=== PATIENT | female | born 1985 | race Asian ===

== ENCOUNTER 2020-01-05 10:05 | Emergency (ER) | payer BC ==
[~2020-01-05] VITALS: Ht 160 cm; Wt 59.0 kg
--- NOTE | 2020-01-05 10:08 | NUR ---
ED Nurse Note: Pt walked in from work c/o 09/05 left lower abdominal pain x 2 months, but pain worsened today. Facial grimacing noted. Last menstruation started 4 days ago. Respirations even and tachypneic on room air. Vitals stable as documented. Pt placed on monitor.
[2020-01-05 10:18] VITALS: BP 115/80
--- NOTE | 2020-01-05 10:21 | Emergency Room Report ---
History of Present Illness General Chief Complaint: Abdominal Pain Source: Patient Present Illness HPI Patient is a 34-year-old female who presents after increased left lower quadrant pain. Reports currently being on her menses. She states he taken control pills. Gradual onset of symptoms which had worsened over time. Prior history of benign pituitary tumor and denies taking any current medications for this.Reports having increased left lower abdominal pain. Pain is worse with movement. Denies heavy bleeding. Allergies: Coded Allergies: No Known Allergies (Unverified , 01/05/20) Patient History Past Medical History: see triage record Last Menstrual Period: CURRENTLY ON HER PERIOD Now: No Reviewed Nursing Documentation: PMH: Agreed; PSxH: Agreed Nursing Documentation-PMH Past Medical History: No History, Except For Review of Systems All Other Systems: negative except mentioned in HPI Physical Exam Vital Signs Date Time Temp Pulse Resp B/P (MAP) Pulse Ox O2 Delivery O2 Flow Rate FiO2 01/05/20 10:09 97.2 84 25 115/80 (92) 100 Room Air Sp02 EP Interpretation: reviewed, normal General Appearance: normal inspection, alert, mild distress Head: atraumatic ENT: normal ENT inspection, hearing grossly normal, normal voice Neck: normal inspection, full range of motion, supple, no bony tend Respiratory: normal inspection, lungs clear, normal breath sounds, no respiratory distress, no retraction, no wheezing Cardiovascular #1: regular rate, rhythm, no edema Gastrointestinal: normal inspection, normal bowel sounds, soft, no guarding, no hernia, tenderness - Lower quadrant Genitourinary: no CVA tenderness Musculoskeletal: normal inspection, back normal, normal range of motion Neurologic: alert, responsive, speech normal, normal inspection Psychiatric: normal inspection, judgement/insight normal, mood/affect normal Medical Decision Making Diagnostic Impression: Primary Impression: Ovarian cyst rupture ER Course Patient presented for lower abdominal pain. Differential diagnosis include was not limited to ruptured ovarian cyst, appendicitis, diverticulitis, bowel obstruction among others. Because of complexity of patient's case laboratory tests and imaging studies were ordered. Imaging study showed some free fluid in the pelvis. Laboratory testing did show some elevated white blood count. Venous duplex of the left lower extremities ordered due to patient's left-sided leg pain. There is no evident DVT seen. Patient given pain medications emergency department with improvement. She was advised to remain off work until improved. The patient is advised to follow up with [employer] in 1-2 days. Patient is advised to return if any worsening condition or if any changes in status that are concerning. This report is dictated with [employer] residential support specialist software which may occasionally lead to discrepancies related to use of this software. Labs Test 01/05/20 10:10 01/05/20 10:40 White Blood Count 18.8 K/UL (4.8-10.8) Red Blood Count 4.76 M/UL (4.20-5.40) Hemoglobin 14.9 G/DL (12.0-16.0) Hematocrit 43.3 % (37.0-47.0) Mean Corpuscular Volume 91 FL (80-99) Mean Corpuscular Hemoglobin 31.2 PG (27.0-31.0) Mean Corpuscular Hemoglobin Concent 34.4 G/DL (32.0-36.0) Red Cell Distribution Width 11.3 % (11.6-14.8) Platelet Count 339 K/UL (150-450) Mean Platelet Volume 5.8 FL (6.5-10.1) Neutrophils (%) (Auto) % (45.0-75.0) Lymphocytes (%) (Auto) % (20.0-45.0) Monocytes (%) (Auto) % (1.0-10.0) Eosinophils (%) (Auto) % (0.0-3.0) Basophils (%) (Auto) % (0.0-2.0) Differential Total Cells Counted 100 Neutrophils % (Manual) 83 % (45-75) Lymphocytes % (Manual) 12 % (20-45) Monocytes % (Manual) 5 % (1-10) Eosinophils % (Manual) 0 % (0-3) Basophils % (Manual) 0 % (0-2) Band Neutrophils 0 % (0-8) Platelet Estimate Adequate Platelet Morphology Normal Red Blood Cell Morphology Normal Prothrombin Time 10.0 SEC (9.30-11.50) Prothromb Time International Ratio 0.9 (0.9-1.1) Activated Partial Thromboplast Time 29 SEC (23-33) Sodium Level 141 MMOL/L (136-145) Potassium Level 3.7 MMOL/L (3.5-5.1) Chloride Level 104 MMOL/L (98-107) Carbon Dioxide Level 26 MMOL/L (21-32) Anion Gap 11 mmol/L (5-15) Blood Urea Nitrogen 18 mg/dL (7-18) Creatinine 0.7 MG/DL (0.55-1.30) Estimat Glomerular Filtration Rate > 60 mL/min (>60) Glucose Level 105 MG/DL (74-106) Calcium Level 9.5 MG/DL (8.5-10.1) Total Bilirubin 0.4 MG/DL (0.2-1.0) Aspartate Amino Transf (AST/SGOT) 15 U/L (15-37) Alanine Aminotransferase (ALT/SGPT) 15 U/L (12-78) Alkaline Phosphatase 61 U/L (46-116) Troponin I 0.000 ng/mL (0.000-0.056) Total Protein 8.3 G/DL (6.4-8.2) Albumin 3.8 G/DL (3.4-5.0) Globulin 4.5 g/dL Albumin/Globulin Ratio 0.8 (1.0-2.7) Lipase 133 U/L (73-393) Thyroid Stimulating Hormone (TSH) 0.849 uiU/mL (0.358-3.740) Urine Color Yellow Urine Appearance Very cloudy Urine pH 9 (4.5-8.0) Urine Specific [place] 1.015 (1.005-1.035) Urine Protein Negative (NEGATIVE) Urine Glucose (UA) Negative (NEGATIVE) Urine Ketones 2+ (NEGATIVE) Urine Blood 5+ (NEGATIVE) Urine Nitrite Negative (NEGATIVE) Urine Bilirubin Negative (NEGATIVE) Urine Urobilinogen Normal MG/DL (0.0-1.0) Urine Leukocyte Esterase 1+ (NEGATIVE) Urine RBC 15-20 /HPF (0 - 2) Urine WBC 0-2 /HPF (0 - 2) Urine Squamous Epithelial Cells Few /LPF (NONE/OCC) Urine Amorphous Sediment Many /LPF (NONE) Urine Bacteria Few /HPF (NONE) Urine HCG, Qualitative Negative (NEGATIVE) Last Vital Signs Date Time Temp Pulse Resp B/P (MAP) Pulse Ox O2 Delivery O2 Flow Rate FiO2 01/05/20 10:09 97.2 84 25 115/80 (92) 100 Room Air Status: improved Disposition: HOME, SELF-CARE Condition: Stable Scripts Hydrocodone Bit/Acetaminophen 5-325* (NORCO 5-325*) 1 Each Tablet 1 TAB ORAL Q6H PRN for For Pain, #8 TAB 0 Refills Prov: Markel Duong MD 01/05/20 Ibuprofen* (MOTRIN*) 600 Mg Tablet 600 MG ORAL Q8H PRN for For Pain, #30 TAB 0 Refills Prov: Markel Duong MD 01/05/20 Markel Duong MD Jan 05, 2020 10:21
[2020-01-05 10:28] LABS: HEMATOCRIT 43.3 % (37.0-47.0); HEMOGLOBIN 14.9 G/DL (12.0-16.0); MEAN CORPUSCULAR VOLUME 91 FL (80-99); PLATELET COUNT 339 K/UL (150-450); RED BLOOD COUNT 4.76 M/UL (4.20-5.40); RED CELL DISTRIBUTION WIDTH 11.3 % (11.6-14.8); WHITE BLOOD COUNT 18.8 K/UL (4.8-10.8)
[2020-01-05] MEDS ORDERED: Morphine Sulfate 4mg/ml Inj (IV USE ONLY) IVP ONE (10:30)
[2020-01-05 10:33] LABS: ANION GAP 11 mmol/L (5-15); BLOOD UREA NITROGEN 18 mg/dL (7-18); CALCIUM 9.5 MG/DL (8.5-10.1); CARBON DIOXIDE 26 MMOL/L (21-32); CHLORIDE 104 MMOL/L (98-107); CREATININE 0.7 MG/DL (0.55-1.30); POTASSIUM 3.7 MMOL/L (3.5-5.1); SODIUM 141 MMOL/L (136-145)
[2020-01-05 10:37] LABS: INR 0.9 (0.9-1.1)
[2020-01-05] MEDS ORDERED: MARLISSA1 EACH PO (10:45)
[2020-01-05 10:46] LABS: ALANINE AMINOTRANSFERASE 15 U/L (12-78); ALBUMIN 3.8 G/DL (3.4-5.0); ALBUMIN/GLOBULIN RATIO 0.8 (1.0-2.7); ALKALINE PHOSPHATASE 61 U/L (46-116); ASPARTATE AMINO TRANSFERASE 15 U/L (15-37); BILIRUBIN,TOTAL 0.4 MG/DL (0.2-1.0)
[2020-01-05 10:50] LABS: APPEARANCE,URINE VERY CLOUDY; BILIRUBIN, URINE NEGATIVE (NEGATIVE); GLUCOSE, URINE (UA) NEGATIVE (NEGATIVE); KETONES,URINE 2+ (NEGATIVE); LEUKOCYTE ESTERASE ,URINE 1+ (NEGATIVE); NITRITE,URINE NEGATIVE (NEGATIVE); PH,URINE 9 (4.5-8.0); PROTEIN,URINE NEGATIVE (NEGATIVE); UROBILINOGEN,URINE NORMAL MG/DL (0.0-1.0)
[2020-01-05 11:00] LABS: COLOR,URINE YELLOW
[2020-01-05 12:00] VITALS: BP 119/84
--- NOTE | 2020-01-05 12:49 | NUR ---
ED Nurse Note: Pt in radiology
[2020-01-05] MEDS ORDERED: Lidocaine 4% Amp 5ml INH ONE (13:00)
--- NOTE | 2020-01-05 13:10 | Diagnostic Imaging Report ---
Indication:Lower abdominal and pelvic pain Technique: Grayscale and duplex Doppler imaging of the pelvis performed utilizing a transabdominal and endovaginal scan. Comparison: None Findings: The size, contour, and configuration of the uterus is within normal limits. The endometrium is uniformly echogenic and normal in thickness. Endometrium is 3.5 mm in thickness. Uterus measures 8.7 x 6.4 x 4.3 cm. The ovaries appear normal bilaterally with good dopplerable blood flow. There is no significant free fluid identified. Right ovary 2.5 x 2.7 x 2.1 cm. Left ovary 4.6 x 3.4 x 2.0 cm. IMPRESSION: Negative pelvic ultrasound. No acute findings.
[2020-01-05] MEDS ORDERED: IBUPROFEN600 MG ORAL (13:44)
[2020-01-05] MEDS ORDERED: NORCO 5-325 TA1 EACH ORAL (13:44)
--- NOTE | 2020-01-05 14:04 | NUR ---
ER DISCHARGE NOTE: Patient is cleared to be discharged per ERMD, pt is aox4, on room air, with stable vital signs. pt was given dc and prescription instructions, pt was able to verbalize understanding, pt id band and iv site removed without complications. pt is able to ambulate with steady gait. pt took all belongings.
[2020-01-05 14:05] VITALS: BP 110/70
--- NOTE | 2020-01-05 16:19 | Diagnostic Imaging Report ---
EXAM: US Duplex Left Lower Extremity Veins CLINICAL HISTORY: PAIN TECHNIQUE: Real-time duplex ultrasound scan of the left lower extremity veins integrating B-mode two-dimensional vascular structure, Doppler spectral analysis, color flow Doppler imaging and compression. COMPARISON: No relevant prior studies available. FINDINGS: Deep veins: Unremarkable. No DVT in the visualized common femoral, femoral, proximal deep femoral or popliteal veins. The veins demonstrate normal color flow, are normally compressible, with normal phasic flow and/or augmentation response. Superficial veins: No thrombus in the visualized segments of the greater saphenous vein. Soft tissues: No acute findings. IMPRESSION: No DVT demonstrated.
== END 2020-01-05 14:06 | disposition home or self-care (01) ==
LOC: EMR 10:21
DX: R10.32 Left lower quadrant pain (principal)
CPT/HCPCS: 36415; 76830; 76856; 80053; 81003; 81025; 83690; 84443; 84484; 85007; 85025; 85610; 85730; 93971; 96360; 96374; 96375; 99284; J2270; J2405; J7030

== ENCOUNTER 2020-01-06 22:26 | Emergency (ER) | payer BC ==
[~2020-01-06] VITALS: Ht 162.6 cm; Wt 59.0 kg
[~2020-01-06 22:26] MED LIST: IBUPROFEN600 MG ORAL; MARLISSA1 EACH PO; NORCO 5-325 TA1 EACH ORAL
--- NOTE | 2020-01-06 22:41 | NUR ---
ER Nurse Note: Pt walked in c/o LLQ pain since 01/02. Pt stated she had 4/10 pain, increasing worse since 01/02. Pt stated had an US done, LT ovarian cyst rupture. Pt stated 8/10 pain on LLQ accompanied with fever of 102.5F. Pt took tylenol, not effective.
[2020-01-06 22:46] VITALS: BP 134/73
--- NOTE | 2020-01-06 22:58 | Emergency Room Report ---
History of Present Illness General Chief Complaint: Fever Source: Patient Present Illness HPI Disclaimer: Please note that this report is being documented using [employer] technology. This can lead to erroneous entry secondary to incorrect interpretation by the dictating instrument. HPI: 34-year-old female presents for evaluation of abdominal pain and fever. She was seen in the emergency department yesterday complaining of left lower quadrant abdominal pain. She was diagnosed with a ruptured ovarian cyst. White count was slightly elevated but she was afebrile at that time. She has been using the [place] and ibuprofen as prescribed. This morning she had some worsening left lower quadrant pain and awoke from a nap febrile and diaphoretic. Reports nausea without vomiting. Denies dysuria, hematuria, diarrhea. She is currently finishing up her menses which began 5 days ago. She takes hormonal control. No history of intra-abdominal surgeries. PMH: Denies PSH: Denies Allergies: Denies Social Hx: Denies Allergies: Coded Allergies: No Known Allergies (Unverified , 01/05/20) Patient History Last Menstrual Period: 01/02/20 Now: No Nursing Documentation-PMH Past Medical History: No Stated History Review of Systems All Other Systems: negative except mentioned in HPI Physical Exam Vital Signs Date Time Temp Pulse Resp B/P (MAP) Pulse Ox O2 Delivery O2 Flow Rate FiO2 01/06/20 22:30 101.1 133 20 134/73 (93) 98 General: Awake and alert, febrile, appears uncomfortable HEENT: NC/AT. EOMI. Cardiovascular: Tachycardic. S1 and S2 normal. No murmur appreciated Resp: Normal work of breathing. No cough, wheezing or crackles appreciated Abdomen: Abdomen is soft, nondistended. Tender palpation the left lower quadrant. No rebound. No peritoneal signs. No tenderness in the right quadrant, suprapubic or upper quadrants. Skin: Intact. No abrasions, laceration or rash over the exposed skin MSK: Normal tone and bulk. Moving all extremities. No obvious deformity. Neuro: Awake and alert. Mentating appropriately. Medical Decision Making Diagnostic Impression: Primary Impression: Ovarian cyst rupture Additional Impressions: Elevated white blood cell count Fever ER Course 34-year-old female presents evaluation of worsening abdominal pain and now for fever after diagnosed a ruptured ovarian cyst yesterday. She arrives tachycardic and febrile and appears uncomfortable. She has tenderness in the left lower quadrant. While the official report did not note a abscess must exclude with a CT scan today. We will repeat labs, give IV fluids, antipyretics , pain medication anti-emetics. Will send for CT scan of the abdomen. Laboratory Tests Test 01/06/20 23:05 White Blood Count 25.5 K/UL (4.8-10.8) *H Red Blood Count 4.18 M/UL (4.20-5.40) L Hemoglobin 13.4 G/DL (12.0-16.0) Hematocrit 37.6 % (37.0-47.0) Mean Corpuscular Volume 90 FL (80-99) Mean Corpuscular Hemoglobin 32.0 PG (27.0-31.0) H Mean Corpuscular Hemoglobin Concent 35.6 G/DL (32.0-36.0) Red Cell Distribution Width 11.2 % (11.6-14.8) L Platelet Count 266 K/UL (150-450) Mean Platelet Volume 5.7 FL (6.5-10.1) L Neutrophils (%) (Auto) % (45.0-75.0) Lymphocytes (%) (Auto) % (20.0-45.0) Monocytes (%) (Auto) % (1.0-10.0) Eosinophils (%) (Auto) % (0.0-3.0) Basophils (%) (Auto) % (0.0-2.0) Neutrophils % (Manual) Pending Lymphocytes % (Manual) Pending Platelet Estimate Pending Platelet Morphology Pending Urine Color Pale yellow Urine Appearance Slightly cloudy Urine pH 8 (4.5-8.0) Urine Specific [place] 1.015 (1.005-1.035) Urine Protein Negative (NEGATIVE) Urine Glucose (UA) Negative (NEGATIVE) Urine Ketones Negative (NEGATIVE) Urine Blood 1+ (NEGATIVE) H Urine Nitrite Negative (NEGATIVE) Urine Bilirubin Negative (NEGATIVE) Urine Urobilinogen Normal MG/DL (0.0-1.0) Urine Leukocyte Esterase Negative (NEGATIVE) Urine RBC 0-2 /HPF (0 - 2) Urine WBC 0 /HPF (0 - 2) Urine Squamous Epithelial Cells Few /LPF (NONE/OCC) Urine Amorphous Sediment Moderate /LPF (NONE) H Urine Bacteria Few /HPF (NONE) Urine HCG, Qualitative Negative (NEGATIVE) Sodium Level 138 MMOL/L (136-145) Potassium Level 3.6 MMOL/L (3.5-5.1) Chloride Level 102 MMOL/L (98-107) Carbon Dioxide Level 23 MMOL/L (21-32) Anion Gap 13 mmol/L (5-15) Blood Urea Nitrogen 11 mg/dL (7-18) Creatinine 0.8 MG/DL (0.55-1.30) Estimate Glomerular Filtration Rate > 60 mL/min (>60) Glucose Level 134 MG/DL (74-106) H Calcium Level 9.0 MG/DL (8.5-10.1) Total Bilirubin 0.3 MG/DL (0.2-1.0) Aspartate Amino Transferase (AST) 14 U/L (15-37) L Alanine Aminotransferase (ALT) 10 U/L (12-78) L Alkaline Phosphatase 59 U/L (46-116) Total Protein 7.5 G/DL (6.4-8.2) Albumin 3.4 G/DL (3.4-5.0) Globulin 4.1 g/dL Albumin/Globulin Ratio 0.8 (1.0-2.7) L Lipase 81 U/L (73-393) Microbiology Date/Time Source Procedure Growth Status 01/07/20 01:10 Nasal Nares - Final Complete 01/07/20 01:10 Nasal Nares - Final Complete CT/MRI/US Diagnostic Results CT/MRI/US Diagnostic Results : Impression CT ABDOMEN & PELVIS With Contrast: Minimal posterior dependent atelectasis, otherwise clear lung bases. Normal heart. Normal liver, spleen, pancreas and bilateral kidneys. Normal adrenal glands. Decompressed gallbladder, nonspecific. Unremarkable stomach with no hiatal hernia. Normal small bowel. Nonspecific fecal debris within the colon. Normal appendix with no signs of acute appendicitis. No bowel obstruction. There is stranding along the anterior aspect of the left psoas muscle with mild periaortic lymph node prominence more so on the left. There is mild free fluid surrounding the left adnexa and within the left posterior cul-de-sac. Possible left ovarian cyst, given fluid may indicate rupturing cyst. Less likely, differential diagnosis includes infectious/inflammatory process. There is a pattern of varicosities surrounding the left adnexa or left ovary. This pattern of nonspecific inflammation along the left retroperitoneum from the level of the renal vein to the ovary with varicosities does not exclude thrombophlebitis of the left ovarian vein. If clinical symptoms do not improve, follow-up with MRI recommended. Radiologist: Hannah Little MD Reevaluation Time: 02:17 Last Vital Signs Date Time Temp Pulse Resp B/P (MAP) Pulse Ox O2 Delivery O2 Flow Rate FiO2 01/06/20 22:46 133 20 01/06/20 22:46 101.1 134/73 98 Status: improved Reevaluation Impression White cell count returned elevated at 25,000 which is increased from yesterday' s values. No evidence of urinary tract infection. C MP otherwise unremarkable. CT scan consistent with a ruptured ovarian cyst but no evidence of obvious abscess. There might be inflammatory changes. Patient received Zosyn empirically on arrival. I offered observation admission for repeat abdominal exams and further monitoring of fever. Influenza swab was negative. The patient declined admission at this time electing to return home with oral antibiotics and monitor herself for improvement. She understands reasons to return to the emergency department that she would warrant return if her symptoms worsened or fail to improve. Her fever and tachycardia resolved. The patient's abdominal pain significantly improved after Toradol. She will continue her hydrocodone and Motrin that was given at her prior emergency department visit. We will add doxycycline. She can follow-up with her [facility] and PMD. Disposition: HOME, SELF-CARE Condition: Improved Scripts Doxycycline Monohydrate* (DOXYCYCLINE MONOHYDRATE*) 100 Mg Capsule 100 MG ORAL Q12H for 10 Days, #20 CAP 0 Refills Prov: Magen Velasquez MD 01/07/20 Magen Velasquez MD Jan 06, 2020 22:58
[2020-01-06] MEDS ORDERED: Ketorolac 30mg Inj IV ONE (23:00)
[2020-01-06] MEDS ORDERED: Omnipaque-300 100ml vial INJ PRN (23:00)
[2020-01-06 23:25] LABS: BILIRUBIN, URINE NEGATIVE (NEGATIVE); COLOR,URINE PALE YELLOW; GLUCOSE, URINE (UA) NEGATIVE (NEGATIVE); KETONES,URINE NEGATIVE (NEGATIVE); LEUKOCYTE ESTERASE ,URINE NEGATIVE (NEGATIVE); NITRITE,URINE NEGATIVE (NEGATIVE); PH,URINE 8 (4.5-8.0); PROTEIN,URINE NEGATIVE (NEGATIVE); UROBILINOGEN,URINE NORMAL MG/DL (0.0-1.0)
[2020-01-06 23:27] LABS: HEMATOCRIT 37.6 % (37.0-47.0); HEMOGLOBIN 13.4 G/DL (12.0-16.0); MEAN CORPUSCULAR VOLUME 90 FL (80-99); PLATELET COUNT 266 K/UL (150-450); RED BLOOD COUNT 4.18 M/UL (4.20-5.40); RED CELL DISTRIBUTION WIDTH 11.2 % (11.6-14.8)
[2020-01-06 23:32] LABS: WHITE BLOOD COUNT 25.5 K/UL (4.8-10.8)
[2020-01-06 23:38] LABS: ANION GAP 13 mmol/L (5-15); BLOOD UREA NITROGEN 11 mg/dL (7-18); CARBON DIOXIDE 23 MMOL/L (21-32); CHLORIDE 102 MMOL/L (98-107); CREATININE 0.8 MG/DL (0.55-1.30); POTASSIUM 3.6 MMOL/L (3.5-5.1); SODIUM 138 MMOL/L (136-145)
[2020-01-06 23:43] LABS: ALANINE AMINOTRANSFERASE 10 U/L (12-78); ALBUMIN 3.4 G/DL (3.4-5.0); ALBUMIN/GLOBULIN RATIO 0.8 (1.0-2.7); ALKALINE PHOSPHATASE 59 U/L (46-116); ASPARTATE AMINO TRANSFERASE 14 U/L (15-37); BILIRUBIN,TOTAL 0.3 MG/DL (0.2-1.0)
[2020-01-06] MEDS ORDERED: Piperacillin/Tazobactam 3.375 GM in NS 110 ML IVPB ONE (23:45)
[2020-01-06 23:47] LABS: APPEARANCE,URINE SLIGHTLY CLOUDY
--- NOTE | 2020-01-07 00:37 | NUR ---
ER Nurse Note: All orders completed per ERMD orders. Pt stated she her pain is decreased after pain meds given. Fluids and antibiotics infusing via IV on LT AC. Awaiting CT results. All safety measures met; will continue to montior.
[2020-01-07 00:39] VITALS: BP 110/68
--- NOTE | 2020-01-07 00:47 | Diagnostic Imaging Report ---
Clinical Indication: Abdominal pain Technique: No oral contrast utilized, per emergency room physician request IV administration nonionic contrast. Venous phase spiral acquisition obtained through the abdomen and pelvis. Multiplanar reconstructions were generated. Total dose length product 1022 mGycm. CTDIvol(s) 17 mGy. Dose reduction achieved using automated exposure control Comparison: none Findings: There is inflammatory change of the left-sided retroperitoneal fat, predominantly surrounding the left ureter. There is a tubular structure with mural enhancement probably represents the left ureter but could represent a thrombosed left ovarian vein. This extends cephalad from the left adnexal region. No evidence of left renal inflammation is demonstrated. Some of the inflammatory change is contiguous with the uncinate process of the pancreas, but the pancreas itself appears unremarkable. There are a few enlarged para-aortic lymph nodes noted. No renal or ureteral calculi, hydronephrosis, or hydroureter. The bladder is unremarkable. There is mild prominence of the left ovary. There appears to be a left ovarian cyst. No evidence of colonic diverticulosis or diverticulitis. What is probably a normal appendix is demonstrated. In any case, no evidence of appendicitis. Distal esophagus unusual left retroperitoneal/periureteral inflammatory change., stomach, duodenum are unremarkable. No small bowel distention. No free or loculated intraperitoneal gas or fluid is evident. The liver, gallbladder, bile ducts,, spleen, adrenals, kidneys are unremarkable. No pelvic mass or adenopathy. The included lung bases demonstrate posterior dependent atelectatic changes. The bones are unremarkable. Impression: Unusual inflammatory change of the left periureteral/retroperitoneal fat. Differential considerations include primary ureteral inflammation or ovarian vein thrombophlebitis. Less likely possibilities include cephalad extension of left-sided pelvic inflammatory disease or caudad extension of pancreatitis. Correlate with clinical findings Para-aortic lymphadenopathy, presumably reactive related to the above This agrees with the preliminary interpretation provided overnight by [employer] teleradiology service. The CT scanner at [facility] is accredited by the [employer] [employer] and the scans are performed using protocols designed to limit radiation exposure to as low as reasonably achievable to attain images of sufficient resolution adequate for diagnostic evaluation.
--- NOTE | 2020-01-07 01:23 | NUR ---
ER Nurse Note: Flu swab sent, awaiting results. Pt a&ox4, VSS, HR 113, denies chest pain, n/v, shortness of breath. Pt ambuatory, skin intact. Fluids infusing. Pt denies pain. All safety measures met, will continue to montior.
[2020-01-07] MEDS ORDERED: DOXYCYCLINE MO100 MG ORAL (02:16)
[2020-01-07 02:25] VITALS: BP 105/66
--- NOTE | 2020-01-07 02:25 | NUR ---
ED Nurse Note: All orders completed per ERMD orders. Pt cleared by health care Provider for discharge. DC instructions/prescription was given and explained to pt and verbalized understanding of teachings. Instructed pt to follow up with primary care physican within 4-7 days. All medical deviecs such as ID band and IV removed. Pt is AAO x4, ambulatory and left with all personal belongings. No fever at discharge, denies pain.
== END 2020-01-07 02:25 | disposition home or self-care (01) ==
LOC: EMR 22:55
DX: N83.202 Unspecified ovarian cyst, left side (principal); D72.829 Elevated white blood cell count, unspecified; R50.9 Fever, unspecified
CPT/HCPCS: 36415; 74177; 80053; 81003; 81025; 83690; 85007; 85025; 86710; 87040; 96361; 96365; 96375; 99284; J1885; J2405; J2543; J7030; Q9967